=== PATIENT | male | born 1960 | race African-American/Black ===

== ENCOUNTER 2017-09-28 16:03 | Inpatient (IN) | payer OTHER ==
[~2017-09-28] VITALS: Ht 177.8 cm; Wt 90.7 kg
[2017-09-28 16:51] LABS: HEMATOCRIT 51.6 % (38.0-50.0); MCH 30.7 PG (29.0-34.0); MCHC 35.5 G/DL (30.0-36.0); MCV 86.4 FL (86-99); MEAN PLAT.VOLUME 10.9 uM^3 (9.0-12.4); PLATELET COUNT 240 K/uL (156-360); RBC DIS.WIDTH-CV 12.2 % (11.8-14.6); RBC DIS.WIDTH-SD 38.4 % (39-53); RED BLOOD COUNT 5.97 M/uL (4.00-5.50); WHITE BLOOD COUNT 17.4 K/uL (4.1-10.2)
[2017-09-28 17:03] LABS: CHLORIDE 97 mEq/L (99-109); POTASSIUM 3.6 mEq/L (3.7-5.4); SODIUM 136 mEq/L (136-147)
[2017-09-28 17:05] LABS: GLUCOSE 131 mg/dL (70-99)
[2017-09-28 17:06] LABS: ANION GAP 16 MEQ/L (2-14)
[2017-09-28 17:08] LABS: ALKALINE PHOSPHATASE 96 IU/L (3-129)
[2017-09-28 17:09] LABS: GFR ESTIMATE (CALCULATED) > 59 mL/min/
[2017-09-28 17:10] LABS: UREA NITROGEN (BUN) 21 mg/dL (9-23)
[2017-09-28 17:12] LABS: LIPASE 34 U/L (1.0-51.0)
[2017-09-28 18:04] LABS: ADD MIUA? YES; BILIRUBIN NEGATIVE; BLOOD NEGATIVE; COLOR AMBER ((YELLOW)); GLUCOSE (STRIP) NEGATIVE; KETONES 5; LEUKOCYTES NEGATIVE; NITRITE NEGATIVE; PROTEIN (STRIP) 100; SPECIFIC GRAVITY 1.031 (1.000-1.030); UROBILINOGEN 0.2 MG/DL (0.2-1.0)
[2017-09-28 18:11] LABS: BACTERIA NONE SEEN /HPF; EPITHELIAL CELLS RARE /HPF; HYALINE CASTS 0-5 /LPF; MUCUS 4+ /LPF; UCUL ADDED? YES
[2017-09-28] MEDS ORDERED: CHILD ASPIRIN81 M1 PO (19:21)
[2017-09-28] MEDS ORDERED: LISINOPRIL40 MG PO (19:22)
[2017-09-28] MEDS ORDERED: NAPROXEN500 MG PO (19:23)
[2017-09-28] MEDS ORDERED: SIMVASTATIN20 MG PO (19:24)
[2017-09-28] MEDS ORDERED: NORVASC5 MG PO (19:25)
[2017-09-28 22:49] LABS: TROP-I INTERPRETATION NEGATIVE; TROPONIN-I < 0.01 ng/mL (0.0-0.30)
[2017-09-28 23:04] VITALS: BP 126/75
[2017-09-28 23:10] VITALS: BP 126/75
[2017-09-29 04:32] VITALS: BP 123/74
[2017-09-29 06:17] LABS: HEMATOCRIT 45.6 % (38.0-50.0); MCH 31.1 PG (29.0-34.0); MCHC 34.9 G/DL (30.0-36.0); MCV 89.1 FL (86-99); MEAN PLAT.VOLUME 11.3 uM^3 (9.0-12.4); PLATELET COUNT 174 K/uL (156-360); RBC DIS.WIDTH-CV 12.5 % (11.8-14.6); RED BLOOD COUNT 5.12 M/uL (4.00-5.50)
[2017-09-29 08:09] VITALS: BP 115/70
[2017-09-29 12:12] VITALS: BP 104/63
[2017-09-29 16:16] VITALS: BP 110/77
[2017-09-29 23:33] VITALS: BP 141/76
[2017-09-30 06:25] LABS: EOSINOPHIL (%) 0.8 % (0-5); EOSINOPHIL COUNT 0.1 K/uL (0-0.3); HEMATOCRIT 38.2 % (38.0-50.0); IMMATURE GRANULOCYTE (%) 0.1 % (0.0-0.7); INSTRUMENT ABS NEUTROPHIL CT 4.6 K/uL; LYMPHOCYTE COUNT 1.9 K/uL (1.0-2.8); MCH 31.6 PG (29.0-34.0); MCHC 34.3 G/DL (30.0-36.0); MEAN PLAT.VOLUME 11.3 uM^3 (9.0-12.4); MONOCYTE (%) 9.2 % (3-12); MONOCYTE COUNT 0.7 K/uL (0-0.8); NEUTROPHIL (%) 63.5 % (45-76); NEUTROPHIL COUNT 4.6 K/uL (1.8-6.4); PLATELET COUNT 142 K/uL (156-360); RBC DIS.WIDTH-CV 12.6 % (11.8-14.6); RBC DIS.WIDTH-SD 42.4 % (39-53); RED BLOOD COUNT 4.15 M/uL (4.00-5.50); WHITE BLOOD COUNT 7.2 K/uL (4.1-10.2)
[2017-09-30 07:31] VITALS: BP 132/77
[2017-09-30 16:15] VITALS: BP 140/92
[2017-09-30 19:46] VITALS: BP 127/78
[2017-09-30 23:22] VITALS: BP 138/85
[2017-10-01 03:51] VITALS: BP 141/86
[2017-10-01 06:06] LABS: EOSINOPHIL (%) 1.7 % (0-5); EOSINOPHIL COUNT 0.1 K/uL (0-0.3); HEMATOCRIT 36.7 % (38.0-50.0); IMMATURE GRANULOCYTE (%) 0.3 % (0.0-0.7); LYMPHOCYTE COUNT 1.8 K/uL (1.0-2.8); MCH 30.4 PG (29.0-34.0); MCHC 34.1 G/DL (30.0-36.0); MCV 89.3 FL (86-99); MEAN PLAT.VOLUME 11.2 uM^3 (9.0-12.4); MONOCYTE (%) 8.4 % (3-12); MONOCYTE COUNT 0.5 K/uL (0-0.8); PLATELET COUNT 156 K/uL (156-360); RBC DIS.WIDTH-SD 39.2 % (39-53); RED BLOOD COUNT 4.11 M/uL (4.00-5.50); WHITE BLOOD COUNT 6.5 K/uL (4.1-10.2)
[2017-10-01 07:53] VITALS: BP 134/86
[2017-10-01 15:56] VITALS: BP 135/89
[2017-10-01 20:47] VITALS: BP 133/87
[2017-10-01 23:27] VITALS: BP 144/88
[2017-10-02 07:21] LABS: HEMATOCRIT 38.1 % (38.0-50.0); MCH 30.1 PG (29.0-34.0); MCHC 34.1 G/DL (30.0-36.0); MCV 88.2 FL (86-99); MEAN PLAT.VOLUME 10.4 uM^3 (9.0-12.4); RBC DIS.WIDTH-CV 11.8 % (11.8-14.6); RBC DIS.WIDTH-SD 38.4 % (39-53); RED BLOOD COUNT 4.32 M/uL (4.00-5.50)
[2017-10-02 07:30] LABS: PLATELET COUNT 209 K/uL (156-360)
[2017-10-02 07:50] VITALS: BP 141/89
[2017-10-02 16:22] VITALS: BP 154/89
[2017-10-03 00:23] VITALS: BP 146/90
[2017-10-03 06:20] LABS: HEMATOCRIT 38.8 % (38.0-50.0); MCH 31.7 PG (29.0-34.0); MCHC 35.6 G/DL (30.0-36.0); MEAN PLAT.VOLUME 10.4 uM^3 (9.0-12.4); PLATELET COUNT 236 K/uL (156-360); RBC DIS.WIDTH-SD 38.6 % (39-53); RED BLOOD COUNT 4.36 M/uL (4.00-5.50); WHITE BLOOD COUNT 6.6 K/uL (4.1-10.2)
[2017-10-03 07:25] VITALS: BP 146/90
[2017-10-03] MEDS ORDERED: MOTRIN600 MG PO (11:19)
[2017-10-03] MEDS ORDERED: COLACE100 MG PO (11:19)
== END 2017-10-03 13:37 | DRG 329 ==
LOC: EME 16:03 → EDBD 16:03 → EME 16:03 → SDC 20:13 → 2SOUTH 21:37 → 3EAST 21:37 → ENRESERV 21:42 → 3EAST 22:54
PROVIDERS: Emergency Medicine; Surgery
DX: K43.6 Other and unspecified ventral hernia with obstruction, without gangrene (principal); K55.029 Acute infarction of small intestine, extent unspecified; K55.9 Vascular disorder of intestine, unspecified; I10 Essential (primary) hypertension; E78.5 Hyperlipidemia, unspecified; E78.00 Pure hypercholesterolemia, unspecified
CPT/HCPCS: 74177; 80053; 81003; 83605; 83690; 84484; 85025; 85027; 87077; 87086; 87186; 88307; 90686; 93005; 99281; 99285; J0330; J1170; J1335; J1650; J1885; J2270; J2405; J2710; J3010; J7120